=== PATIENT | male | born 1930 | race Caucasian/White ===

== ENCOUNTER 2017-12-03 23:47 | Inpatient (IN) ==
--- NOTE | 2017-12-04 00:08 | ERNOTE ---
Lower Extremity HPI - General Lower Extremities Pain: hip: right - fracture Time Seen by Provider: 12/03/17 23:59 Source: patient Exam Limitations: no limitations - Immun/Allergies/Home Medications Immunizations: IMMUNIZATION HX Immunizations Up to Date Yes History of Influenza Vaccine Yes Hx Pneumococcal Vaccination Yes Allergies/Adverse Reactions: Allergies Allergy/AdvReac Type Severity Reaction Status Date / Time No Known Allergies Allergy Unverified 12/04/17 00:08 Home Medications: HOME MEDICATIONS Cyanocobalamin [Vitamin B-12] 1,000 mcg PO DAILY 12/04/17 [Last Taken Unknown] Lisinopril [Zestril] 10 mg PO DAILY 12/04/17 [Last Taken Unknown] Lovastatin [Altoprev] 20 mg PO DAILY 12/04/17 [Last Taken Unknown] Rivaroxaban [Xarelto] 20 mg PO DAILY 12/04/17 [Last Taken Unknown] Stool Softener 1 tab PO DAILY 12/04/17 [Last Taken Unknown] Tamsulosin HCl [Flomax] 0.4 mg PO DAILY 12/04/17 [Last Taken Unknown] - History of Present Illness Narrative: Pt slipped on gravel and fell this evening and was taken to [facility] where he was diagnosed with a right hip fracture. He was accepted by orthopedics and transferred here for orthopedic consult and repair of his hip fracture. Occurred: this evening Location of Incident: home Method of Injury: Reports: fell Review of Systems - Review of Systems Constitutional: Absent: recent illness, fever EYE: Absent: vision changes ENT: Absent: nose congestion, nasal drainage Respiratory: Absent: shortness of breath, cough Cardiology: Absent: chest pain, palpitations Gastrointestinal/Abdominal: Absent: nausea, vomiting Genitourinary: Present: frequency - at night. Absent: dysuria Musculoskeletal: Present: joint pain - right hip only. Absent: back pain Skin: Absent: rash, lesions Neurological: Absent: headache, dizziness/light-headedness Endocrine: Absent: excessive sweating, flushing Hematologic/Lymphatic: Present: easy bruising, easy bleeding Psych: Absent: anxiety, depressed Medical History (Last Reviewed 12/04/17 @ 00:36 by Jamar Leung DO) DVT (deep venous thrombosis) Prostate hypertrophy High cholesterol Hypertension Surgical History: Surgical History (Last Reviewed 12/04/17 @ 00:36 by Jamar Leung DO) No history of previous surgery Family History: Family History (Last Reviewed 12/04/17 @ 00:36 by Jamar Leung DO) Mother Diabetes Other Parents Social History: Preferred Language Icelandic Do you have any gnosticism or No cultural preference? Smoking Status Never smoker Alcohol Use occasionally Drug Use none No Social History Section defined Physical Exam - Physical Exam General Appearance: Present: wd/wn, alert, no apparent distress Head Exam: Present: normal inspection, no evidence of injury Ears, Nose, Throat: Present: normal ENT inspection Neck: Present: normal inspection, nontender, supple Respiratory: Present: no respiratory distress, normal breath sounds, lungs clear Cardiovascular/Chest: Present: regular rate, rhythm, no murmur, normal peripheral pulses Gastrointestinal/Abdominal: Present: normal bowel sounds, nontender, nondistended, soft Back Exam: Present: no vertebral tenderness Extremity Exam: Present: normal except - - pain in right hip. , decreased range of motion - right hip, pelvis stable, pedal edema Neurological Exam: Present: alert, oriented, normal mood/affect, no motor/sensory deficits Skin Exam: Present: normal color, warm/dry Lymphatic Exam: Present: no adenopathy ED Progress - Results and Orders Patient's Lab Results:: I have reviewed the patient's lab results. Results and Orders: labs from [place] show CBC, CMP, PTT within normal limits. - Vital Signs Patient's Vital Signs:: I have reviewed the patient's vital signs. Vital Signs: Vital Signs 12/03/17 23:51 Temperature 38.0 C Pulse Rate 95 Respiratory Rate 16 Blood Pressure 185/90 H O2 Sat by Pulse Oximetry 95 - X-Ray X-Ray #1 X-Ray: hip - right Interpretation: Reviewed by me X-ray Comments: impacted, angulated, right femoral neck fracture. No visible pelvic fracture X-Ray #2 X-Ray: chest Interpretation: Reviewed by me X-ray Comments: reading of CXR from [place] was normal cardiopulmonary x ray. - Progress/Reassessment Chief Complaint: Hip Pain/Injury Progress:: Improved Progress Note-Subjective: 12/04/17 00:20 spoke with Christiano Abdullahi PA-C he requests that I consult FP/IM for admission and they consult Dr. Cottrell. 00:25 Spoke with she agrees with admission. Departure Clinical Impression: Femoral neck fracture Qualifiers: Encounter type: initial encounter Fracture type: closed Laterality: right Qualified Code(s): S72.001A - Fracture of unspecified part of neck of right femur, initial encounter for closed fracture - Departure Disposition: Still a patient Condition: Good
[2017-12-04] MEDS ORDERED: MORPHINE SULFATE 2 MG/ML DISP.SYRIN IV ONE (00:28)
[2017-12-04] MEDS ORDERED: MORPHINE SULFATE 2 MG/ML DISP.SYRIN ONE (00:30)
[2017-12-04] MEDS ORDERED: LABETALOL HCL 5 MG/ML VIAL IV ONE (01:58)
[2017-12-04] MEDS: NORMAL SALINE 1,000 ML IV PRN ×3 (02:43→18:26)
--- NOTE | 2017-12-04 08:25 | HP ---
Chief Complaint - Chief Complaint Date of Service: 12/04/17 Time of Service: 07:49 Chief Complaint: hip fracture History of Present Illness: Patient with PMHx of HTN, HLD, remote DVT admitted overnight for right hip fracture. No family present during my exam, and he displays some confusion. He is able to say he had an injury, but can not give details. Not oriented to place or time, but is oriented to self. Per ED notes, he tripped and fell in his driveway. He initially went to the [place] ED, and right hip xray shows angulated, impacted right femoral neck fracture. He received 50 mg fentanyl in [place], and 2 mg morphine at 12:30 this morning. Unable to see images from [place], but CXR report shows no acute abnormality on his portable AP chest xray. He takes xarelto for a remote DVT. INR of 1.4 last night. No significant abnormalities on CMP or CBC. Hgb of 13.0. ED notes report normal mentation. Medical History (Last Reviewed 12/04/17 @ 01:16 by Chasity Reyes RN) DVT (deep venous thrombosis) Prostate hypertrophy High cholesterol Hypertension Surgical History: Surgical History (Last Reviewed 12/04/17 @ 01:16 by Chasity Reyes RN) No history of previous surgery Family History: Family History (Last Reviewed 12/04/17 @ 01:16 by Chasity Reyes RN) Mother Diabetes Other Parents Social History: Patient Lives/Resources Home Utilized Occupation Retired Preferred Language Mosotho Do you have any moravian or No cultural preference? Smoking Status Former smoker Have you smoked in the past 12 No months Do you dip or chew tobacco No Alcohol Use occasionally Drug Use none No Social History Section defined Review Of Systems (GEN) - Review of Systems Generalized/Overall Review: Absent: Fever Respiratory: Absent: Shortness of Breath Cardiac: Absent: Chest Pain Abdominal: Absent: Nausea Immunizations: IMMUNIZATION HX Immunizations Up to Date Yes History of Influenza Vaccine Yes Hx Pneumococcal Vaccination Yes Allergies/Adverse Reactions: Allergies Allergy/AdvReac Type Severity Reaction Status Date / Time No Known Allergies Allergy Unverified 12/04/17 00:08 Home Medications: HOME MEDICATIONS Cyanocobalamin [Vitamin B-12] 1,000 mcg PO DAILY 12/04/17 [Last Taken Unknown] Docusate Sodium [Colace] 100 mg PO DAILY 12/04/17 [Last Taken Unknown] Lisinopril [Zestril] 10 mg PO DAILY 12/04/17 [Last Taken Unknown] Lovastatin [Altoprev] 20 mg PO DAILY 12/04/17 [Last Taken Unknown] Rivaroxaban [Xarelto] 20 mg PO DAILY 12/04/17 [Last Taken Unknown] Tamsulosin HCl [Flomax] 0.4 mg PO DAILY 12/04/17 [Last Taken Unknown] Exam - Exam Vital Signs: Vital Signs - Last Taken Temp 37.4 C 12/04/17 00:59 Pulse 74 12/04/17 03:33 Resp 16 12/04/17 03:33 BP 161/79 H 12/04/17 03:33 Pulse Ox 93 12/04/17 00:59 Constitutional: Present: Alert - Oriented to self. States the season is spring, and the upcoming holiday is . Can not state location, Cooperative, No distress, Elderly Respiratory: Present: normal breath sounds, no respiratory distress Cardiovascular/Chest: Present: regular rate, rhythm Abdomen: Present: Normal bowel sounds, soft, nontender Extremity: Present: no pedal edema, other - right leg externally rotated and foreshortened Neurologic: Present: general magistrate II-XII nml as tested. Absent: sensory deficit Eye contact: Present: cooperative Assessment/Plan - Assessment/Plan (1) Femoral neck fracture Assessment: Ortho has been consulted for surgical repair. Patient is confused, and consent will need to be signed by POA. Negative portable CXR in [place]. No history of CHF or prior TIA/CVA. He is at low risk for major cardiac event. Pain control with morphine. Problem: Acute Qualifiers: Encounter type: initial encounter Fracture type: closed Laterality: right Qualified Code(s): S72.001A - Fracture of unspecified part of neck of right femur, initial encounter for closed fracture (2) Confusion Assessment: Family not present to help determine his baseline mentation. Per his nurse, he was alert and oriented appropriately earlier this morning, so his confusion may be intermittent. Could be secondary to pain medications, hospitalization, and his injury. Will continue to assess. Problem: Acute (3) Hypertension Assessment: Continue home lisinopril. He was given an extra dose of labetalol overnight. His BP may be elevated secondary to pain, and will monitor today. Can increase his lisinopril dose to 20 mg if it is consistently high. Problem: Acute (4) History of DVT (deep vein thrombosis) Assessment: Home Xarelto held prior to surgery. Will discuss with family more details regarding his previous DVT, as prolonged anticoagulation may not be needed. Problem: Chronic (5) Prostate enlargement Assessment: Continue home tamsulosin. He was unable to urinate overnight, and martínez was placed. Problem: Acute (6) Hyperlipidemia Assessment: Holding home lovastatin. Problem: Acute
--- NOTE | 2017-12-04 08:58 | CONS ---
HPI - General Date of Service: 12/04/17 Narrative: Consultation note. Mr. Parson was admitted through the emergency department after a ground-level fall at home. Patient was unable to bear weight on his right lower extremity . Initially seen at [facility] and then transferred up to [facility] and is admitted under Dr. Liu's service. Patient reports no complaints of any other areas of pain. Source: patient - History of Present Illness Allergies/Adverse Reactions: Allergies No Known Allergies Allergy (Unverified 12/04/17 00:08) Home Medications: Home Medications Medication Instructions Recorded Last Taken Cyanocobalamin [Vitamin B-12] 1,000 mcg PO DAILY 12/04/17 Unknown Docusate Sodium [Colace] 100 mg PO DAILY 12/04/17 Unknown Lisinopril [Zestril] 10 mg PO DAILY 12/04/17 Unknown Lovastatin [Altoprev] 20 mg PO DAILY 12/04/17 Unknown Rivaroxaban [Xarelto] 20 mg PO DAILY 12/04/17 Unknown Tamsulosin HCl [Flomax] 0.4 mg PO DAILY 12/04/17 Unknown Medications - Medications Current Medications: Current Medications Sodium Chloride (Sodium Chloride 0.9%) 1,000 mls @ 125 mls/hr IV .Q8H PRN PRN Reason: HYDRATION Stop: 01/03/18 02:00 Last Admin: 12/04/17 02:43 Dose: 125 mls/hr Physical Examination - Exam Narrative: Patient laying in bed alert. He is not in any distress at this point time. Right lower extremity only shortened and externally rotated. Reports local inguinal pain with palpation. Reports inguinal pain with logroll test. Reports sensation intact in the right lower extremity to touch. Patient is able to plantarflex and dorsiflex right ankle. 1+ posterior tibial pulse. No knee or ankle pain in the right lower extremity with palpation. X-rays reviewed show a displaced subcapital hip fracture in varus. Vital Signs: Vital Signs - Last Taken Temp 37.4 C 12/04/17 00:59 Pulse 74 12/04/17 03:33 Resp 16 12/04/17 03:33 BP 161/79 H 12/04/17 03:33 Pulse Ox 93 12/04/17 00:59 O2 Oxygen Delivery Method Room Air - Assessments/Findings (1) Fracture of right hip Diagnosis(s): Discussed with patient his condition. Surgery discussed for hemiarthroplasty. Risks of infection, neurovascular injury, leg length discrepancy, risk of dislocation of implant and hardware complications, DVT and pulmonary embolism discussed. He will be n.p.o. at midnight tonight with plan pending medical evaluation to proceed with surgery December 05. Consents will be obtained from POA. Patient will have Ancef IV preop. Problem: Acute
[2017-12-04] MEDS ORDERED: TAMSULOSIN HCL 0.4 MG CAP.SR.24H PO SCH (09:00)
[2017-12-04] MEDS: DOCUSATE SODIUM 100 MG CAPSULE PO SCH (09:03)
[2017-12-04] MEDS: LISINOPRIL 10 MG TABLET PO SCH (09:03)
[2017-12-04] MEDS: MORPHINE SULFATE 2 MG/ML DISP.SYRIN IV PRN ×3 (09:14→22:53)
[2017-12-04] MEDS: TAMSULOSIN HCL 0.4 MG CAP.SR.24H PO SCH (18:25)
[2017-12-05] MEDS ORDERED: ACETAMINOPHEN 325 MG TABLET PO PRN (01:29)
[2017-12-05] MEDS ORDERED: ACETAMINOPHEN 325 MG TABLET ONE (01:35)
[2017-12-05 01:52] LABS: Hematocrit 33.9 % (42.0-52.0); Hemoglobin 11.3 gm/dL (13.5-18.0); Mean Cell Volume 96.6 fl (78-100); Mean Corpuscular Hemoglobin 32.2 pg (27-31); Mean Corpuscular Hgb Conc 33.3 g/dl (32-36); Neutrophil # 6.7 K/mm3 (1.3-6.0); Neutrophil % 76.1 % (42-75.0); Platelet Count 157 K/mm3 (150-450); Red Blood Count 3.51 M/mm3 (4.7-6.0); Red Cell Distribution Width 12.2 % (11.5-14.0); White Blood Count 8.9 K/mm3 (4.0-10.5)
[2017-12-05 02:29] LABS: Urine Bilirubin Negative (NEGATIVE); Urine Blood 250 /ul (NEGATIVE); Urine Ketone Negative (NEGATIVE); Urine Nitrite Negative (NEGATIVE); Urine Protein Negative (NEGATIVE); Urine Specific Gravity 1.015 SP.GR. (1.005-1.030); Urine Urobilinogen Normal (NORMAL)
[2017-12-05 02:36] LABS: Urine Appearance Slightly Cloudy (CLEAR); Urine Bacteria TRACE; Urine Color Yellow; Urine RBC 25-50 /hpf (0-5); Urine WBC 0-5 /hpf (0-5)
[2017-12-05] MEDS: NORMAL SALINE 1,000 ML IV PRN (02:40)
[2017-12-05] MEDS: RINGER'S SOLUTION,LACTATED 1,000 ML IV PRN ×3 (05:57→14:14)
[2017-12-05] MEDS ORDERED: ceFAZolin SODIUM 1 GM VIAL IV PRN (06:00)
[2017-12-05] MEDS ORDERED: ROPIVACAINE HCL/PF 100 MG, EPINEPHrine 0.2 MG, KETOROLAC TROMETHAMINE 30 MG in NORMAL S... IJ PRN (06:00)
[2017-12-05] MEDS ORDERED: TRANEXAMIC ACID 1,000 MG in NORMAL SALINE 100 ML IV PRN (06:00)
[2017-12-05] MEDS: LISINOPRIL 10 MG TABLET PO SCH (08:28)
[2017-12-05] MEDS: DOCUSATE SODIUM 100 MG CAPSULE PO SCH (08:28)
--- NOTE | 2017-12-05 08:40 | PN ---
Subjective - Date and Time Seen Date: 12/05/17 Time: 08:40 Subjective Narrative: Nursing called overnight for temperature of 38.3. Tylenol was given, and fever resolved. CBC and UA ordered. WBC not elevated, and UA was positive for blood and leuk esterase. He reports having problems with urinating at baseline. He has left knee pain at baseline. Right hip pain when he tries to move. Surgery scheduled for this afternoon. Objective - Review of Systems Generalized/Overall Review: Reports: Fever Respiratory: Denies: Shortness of Breath Cardiac: Denies: Chest Pain Abdominal: Reports: Vomiting. Denies: Nausea Genitourinary Symptoms: Reports: Other - martínez in place Neurological: Reports: Other - Vitals Vitals: Last Vital Signs Temp 36.9 C 12/05/17 06:55 Pulse 71 12/05/17 08:28 Resp 12 12/05/17 06:55 BP 160/73 H 12/05/17 08:28 Pulse Ox 94 12/05/17 06:55 - Abnormal Lab Findings Abnormal Lab Findings: Abnormal Lab Results 12/05/17 12/05/17 Range/Units 01:45 02:15 RBC 3.51 L (4.7-6.0) M/mm3 Hgb 11.3 L (13.5-18.0) gm/dL Hct 33.9 L (42.0-52.0) % MCH 32.2 H (27-31) pg Neutrophils % 76.1 H (42-75.0) % Lymphocytes % 10.3 L (20-51) % Monocytes % 11.5 H (0.0-9) % Neutrophils # 6.7 H (1.3-6.0) K/mm3 Lymphocytes # 0.91 L (1.5-3.5) k/mm3 Urine Blood 250 H (NEGATIVE) /ul Ur Leukocyte Esterase 75 H (NEGATIVE) /ul Urine RBC 25-50 H (0-5) /hpf - Exam Constitutional: Present: Alert - Oriented to self, knows president, Cooperative, No distress ENT Exam: Present: other - hard of hearing Respiratory: Present: lungs clear, normal breath sounds Cardiovascular/Chest: Present: regular rate, rhythm Abdomen: Present: Normal bowel sounds, soft, nontender Extremity: Present: leg pain - right hip, left knee, other - right leg laterally rotated, shortened. SCDs in place Eye contact: Present: cooperative, good eye contact Cauti Physician Documentation - Urinary Catheter Management Urethral (Martínez) Date of Insertion: 12/04/17 Time of Insertion: 02:15 Assessment/Plan - Problems/Diagnosis (1) Femoral neck fracture Problem: Acute Qualifiers: Encounter type: initial encounter Fracture type: closed Laterality: right Qualified Code(s): S72.001A - Fracture of unspecified part of neck of right femur, initial encounter for closed fracture Narrative: Plan for surgical fixation this afternoon. Pain control with morphine. He also has a problematic left knee, and his does not think she will be able to care for him postop. Placement pending. (2) Fever Problem: Acute Narrative: Temp of 38.3 overnight, improved with tylenol. No signs of infection on exam. Martínez catheter had been placed around 0230 on 12/04/17, and fever was documented at 0100 on 11/25/17. Unlikely to have catheter associated UTI in that short time. UA was positive for blood and leuk esterase, and urine culture pending. He was given a dose of Rocephin this morning, since he is having surgery this afternoon. (3) Confusion Problem: Acute Narrative: Likely secondary to morphine, injury, and hospitalization. His reports he has been having difficulty with word finding. (4) Hypertension Problem: Acute Narrative: Continue home 10 mg lisinopril. Add 20 mg labetalol if needed for persistent BP greater than 160/90. (5) History of DVT (deep vein thrombosis) Problem: Chronic Narrative: Was prescribed xarelto prior to his injury. SCDs in place. His reports the DVT was 18 months ago. (6) Prostate enlargement Problem: Acute Narrative: continue tamsulosin (7) Hyperlipidemia Problem: Acute Narrative: holding home lovastatin.
[2017-12-05] MEDS: MORPHINE SULFATE 2 MG/ML DISP.SYRIN IV PRN (09:50)
--- NOTE | 2017-12-05 09:54 | PREOP NOTE ---
Preoperative Progress Note - Preoperative Changes Changes to Preop Condition?: No Changes
--- NOTE | 2017-12-05 12:25 | ANES ---
Anesthesia Pre Procedure Eval Vitals/Labs: Last Vital Signs Temp 36.9 C 12/05/17 06:55 Pulse 71 12/05/17 08:28 Resp 12 12/05/17 06:55 BP 160/73 H 12/05/17 08:28 Pulse Ox 94 12/05/17 06:55 HOME MEDICATIONS Cyanocobalamin [Vitamin B-12] 1,000 mcg PO DAILY 12/04/17 [Last Taken Unknown] Docusate Sodium [Colace] 100 mg PO DAILY 12/04/17 [Last Taken Unknown] Lisinopril [Zestril] 10 mg PO DAILY 12/04/17 [Last Taken Unknown] Lovastatin [Altoprev] 20 mg PO DAILY 12/04/17 [Last Taken Unknown] Rivaroxaban [Xarelto] 20 mg PO DAILY 12/04/17 [Last Taken Unknown] Tamsulosin HCl [Flomax] 0.4 mg PO DAILY 12/04/17 [Last Taken Unknown] Allergies/Adverse Reactions: Allergies Allergy/AdvReac Type Severity Reaction Status Date / Time No Known Allergies Allergy Unverified 12/04/17 00:08 - Planned Procedure Planned Procedure: Right Hip Fx Medication List Reviewed:: Yes Allergies Verified: Yes Medical History (Last Reviewed 12/05/17 @ 12:16 by Ruben Jordan CRNA) DVT (deep venous thrombosis) Prostate hypertrophy High cholesterol Hypertension Surgical History (Last Reviewed 12/05/17 @ 12:19 by Ruben Jordan CRNA) No history of previous surgery Family History (Last Reviewed 12/05/17 @ 12:19 by Ruben Jordan CRNA) Mother Diabetes Other Parents - Family Anesthesia History Family History:: no untoward family reactions to anesthesia, no familial bleeding tendencies, no family history of clotting disorders, no family history of premature - Airway/Neck/Teeth Teeth Condition: Stained, Missing Teeth, Broken, Incisor Notching Neck Exam: limited range of motion Mallampatti Score: 2 Thyromental (T-M) distance: > 6 cm Mandibulo Hyoid distance: > 3 cm - Respiratory Respiratory: chest non-tender, lungs clear - coarse but not ronchi Smoking Status: Former smoker Sleep Apnea currently treated: No Sleep Apnea by current assessment: No - Cardiovascular Patient History - Cardiac/Respiratory: Hypertension, Hyperlipidemia Tolerates Activity: Poor Heart Sounds: S1 & S2, Regular - Anesthesia Assessment and Plan ASA Class: PS, III Anesthesia Type Plan: Spinal - on Xarelto but last dose either Sunday or Sunday morning. Await EKG Planned difficult intubation/equipment available: Yes - if intubation needed
[2017-12-05] MEDS ORDERED: ACETAMINOPHEN 500 MG TABLET PO PRN (15:18)
[2017-12-05] MEDS ORDERED: ONDANSETRON HCL/PF 2 MG/ML VIAL IV PRN (15:18)
[2017-12-05] MEDS ORDERED: MORPHINE SULFATE 2 MG/ML DISP.SYRIN IV PRN (15:18)
[2017-12-05] MEDS ORDERED: MAG HYDROX/ALUMINUM HYD/SIMETH 30 ML UDC PO PRN (15:18)
--- NOTE | 2017-12-05 15:18 | OR ---
Operative Report - Dictated Report Narrative: Date: 12/05/2017 Preoperative diagnosis: Closed right hip displaced femoral neck fracture. Postoperative diagnosis: Closed right hip displaced femoral neck fracture Procedure: Right hip cemented marty-arthroplasty. Surgeon: Abdiel Cottrell M.D. Wage Hand: Christiano Abdullahi PA-C Anesthesia: Spinal. Complications: None Specimens: Bone for disposal. Estimated blood loss: 150 milliliters. Retained implants: Depuy [place] size 7 basic cemented femoral stem. Size 56 millimeter outside diameter self-centering bipolar head with +5 millimeter cobalt chromium 28 mm femoral head. Indications: Mr. Parson is a 87-year-old gentleman who fell at home. This patient was evaluated on the floor and found to have sustained a displaced femoral neck fracture. The risks and benefits were discussed with the patient as well as any power of finance attorney or family . The patient wished to proceed with surgical treatment. The risks, benefits, and alternatives discussed were , blood clots, bleeding, infection, nerve/tendon blood vessel/ injury, malposition of components, dislocation and/or instability of joint, intraoperative fracture, postoperative limited range of motion, persistent pain, failure of components, and need for additional procedures. Patient wished to proceed. Consent was obtained after answering all questions. Procedure: After marking the correct extremity on the floor, the patient was taken to the operating room. A timeout was performed. IV antibiotics consisting of Ancef were administered prior to the procedure. A spinal anesthetic was induced by anesthesia. A Roper catheter was inserted if not are in place. The patient was then transitioned to a lateral position on a well- padded pegboard. An axillary roll was placed. The head was in neutral position. The non-operative down leg was well-padded with SCD and KOBY hose in place. The arms were supported and padded to protect from any undue pressure on the bony prominences and nerves. Well-padded anterior and posterior pelvic and chest posts were secured in order to maintain a stable position of the pelvis. This was placed so that the pelvis was perpendicular to the floor. The body was in line with the pelvis. Once it was felt that we had protected all the bony prominences and the patient was well secured with a safety belt as well, the leg was pre-scrubbed with alcohol, prepped and draped in a standard sterile fashion. A standard anterior lateral hip incision was marked out over the greater trochanter. Ioban drapes were then placed. The skin incision was then made. Sharp dissection with a scalpel utilizing cautery for hemostasis was carried out down to the gluteus and iliotibial band fascia. This was split in line with the skin incision. The greater trochanter bursa was excised. The anterior and posterior margins of the abductor tendon were identified. The anterior 1/2-1/3 of the tendon was tagged and reflected off the greater trochanter leaving a sleeve of tendon for repair at the completion of the case. This exposed the underlying hip joint capsule. An inverted T-type capsulotomy was made extending this up to the brim of the acetabulum. We encountered a hematoma at this point confirming an acute fracture as well as noted displacement of the femoral neck fracture. Using Homans to assist with elevation of the soft tissues off the anterior, superior, and inferior aspects of the femoral neck, the hip was then placed in a figure 4 position for a femoral neck cleanup cut to be made. With the leg in an externally rotated and adducted position, the cutting flag was utilized in order to audra for a standard femoral neck cut approximately a fi ngerbreadth above the level of the lesser trochanter. This was done while protecting the surrounding soft tissues with Homans. The femoral head was then removed and sized for guidance on the size of the bipolar head. It was noted that there was no significant loss of articular cartilage on both the femoral head and weightbearing portions of the acetabulum. We then returned the leg to the table and turned our attention to the acetabulum. While protecting the surrounding soft tissues, the labrum and remaining tissue in the fovea were excised using a scalpel and cautery. The acetabulum was then protected with a sponge while we returned our attention to the femur. With the leg in a figure 4 position utilizing Homans for soft tissue protection, a box cutting osteotome, followed by Hiwotey awl, followed by serial broaches were utilized in order to prepare the femur. It was found that a size 7 broach gave good axial and rotational stability. The proximal femur was visualized to ensure that there were no signs of fracture. A series of heads were trialed. It was found that a + 5 femoral head gave good overall stability. There is minimal longitudinal instability. Hip range of motion was able to reach full extension and external rotation to greater than 75 degrees prior to impingement along the posterior acetabulum. The hip was able to be flexed to greater than 90 degrees with internal rotation greater than 60 degrees prior to anterior impingement. The limb lengths were near equal based on comparison to the contralateral side . At this point was felt this was the appropriately sized femoral components as well as neck and femoral head. The trial implants were removed. A canal cement plug was placed distally and the canal was thoroughly irrigated using pulsatile vacuum brush device. The canal was then thoroughly dried with a suction device. The cement was vacuum mixed per the med surg nurse's instructions and placed into a cement gun. Cement was then placed in the dry irrigated femur using modern cementing technique using a pressurizing device. The stem was then placed in the appropriate version compared to her sycuan anatomy and held in place while the cement cured and the extruded cement was removed. Once the cement was fully cured, we ensured that the stem was stable and that there were no signs of fracture. The remaining extruded cement was removed, and the joint and the capsule were thoroughly evaluated to ensure there are no cement fragments. The final femoral bipolar head was then impacted in the place. The hip was then reduced and seated completely. A periarticular joint injection of ropivacaine, Toradol, and epinephrine was infused around the joint and surrounding tissues. The capsule was repaired with a single interrupted #1 Vicryl. The abductor tendon was repaired to the greater trochanter utilizing #5 Ethibond through drill holes. This was oversewn with #1 Vicryl. The fascia was closed with interrupted #1 Vicryl. The wounds were thoroughly irrigated as we closed in layers. The deep and subcutaneous fat layers were closed with 0 Vicryl. The subcutaneous tissue was closed with a running 3-0 Vicryl and the skin with anup. All sponge, needle, blade, and instrument counts were correct prior to closing the wounds. Sterile dressings consisting of Xeroform, 4 x 4's, ABD, and tape were applied. The patient was awoken and transferred to her hospital bed and then to the postanesthesia care unit in stable condition. Postoperative condition: The plan is to return to the medical/surgical inpatient floor postoperatively. Postoperatively 24 hours of IV antibiotics, pain control, physical therapy, occupational therapy, and medical comanagement will be utilized. Patient will be weightbearing as tolerated with anterior hip precautions. Postoperative films will be obtained in the recovery room.
[2017-12-05] MEDS: ceFAZolin SODIUM 1 GM in DEXTROSE 5 % IN WATER 100 ML IV SCH ×2 (17:33)
[2017-12-05] MEDS: TAMSULOSIN HCL 0.4 MG CAP.SR.24H PO SCH (18:35)
[2017-12-05] MEDS: SENNOSIDES/DOCUSATE SODIUM 1 TAB TABLET PO SCH (21:16)
[2017-12-05] MEDS: HYDROcodone/ACETAMINOPHEN 1 EACH TABLET PO PRN (23:24)
[2017-12-06] MEDS: ceFAZolin SODIUM 1 GM in DEXTROSE 5 % IN WATER 100 ML IV SCH ×4 (00:07→06:48)
[2017-12-06 05:33] LABS: Hematocrit 32.5 % (42.0-52.0); Hemoglobin 10.7 gm/dL (13.5-18.0); Mean Cell Volume 98.8 fl (78-100); Mean Corpuscular Hemoglobin 32.5 pg (27-31); Mean Corpuscular Hgb Conc 32.9 g/dl (32-36); Mean Platelet Volume 9.4 fl (8-11.3); Platelet Count 161 K/mm3 (150-450); Red Blood Count 3.29 M/mm3 (4.7-6.0); Red Cell Distribution Width 12.2 % (11.5-14.0)
[2017-12-06 05:41] LABS: Anion Gap 9.2 mmol/L (6.8-13.8); BUN/Creatinine Ratio 10.1 (9.0-21.6); Calcium * 8.1 mg/dL (7.9-10.9); Carbon Dioxide 29.9 mmol/L (24-32.6); Estimated Creat Clear 66.7; Potassium 4.1 mmol/L (3.4-4.6)
--- NOTE | 2017-12-06 08:27 | PN ---
Subjective - Date and Time Seen Date: 12/06/17 Time: 08:25 Subjective Narrative: Doing well. Sitting in chair. Denies excess pain. Eating well. Objective Objective Narrative: RLE : thigh soft, dressings dry, palp DP, moving toes, mild pain with hip ROM, sensation intact - Vitals Vitals: Last Vital Signs Temp 37.1 C 12/06/17 07:53 Pulse 78 12/06/17 07:53 Resp 14 12/06/17 07:53 BP 144/64 12/06/17 07:53 Pulse Ox 94 12/06/17 07:53 - Abnormal Lab Findings Abnormal Lab Findings: Abnormal Lab Results 12/06/17 12/06/17 Range/Units 05:16 05:16 RBC 3.29 L (4.7-6.0) M/mm3 Hgb 10.7 L (13.5-18.0) gm/dL Hct 32.5 L (42.0-52.0) % MCH 32.5 H (27-31) pg Random Glucose 117 H (70-110) mg/dL - Exam Constitutional: Present: Alert Cauti Physician Documentation - Urinary Catheter Management Urethral (Roper) Date of Insertion: 12/04/17 Time of Insertion: 02:15 Date of Removal: 12/06/17 Time of Removal: 07:10 Assessment/Plan Plan Narrative: POD 1 s/p right hip hemiarthroplasty - WBAT, Anterior hip precautions, resumed on xarelto, ice to hip, keep wound dry, cover with dry gauze, will follow-up with ortho 2 weeks post-discharge, continue PT, pain control.
--- NOTE | 2017-12-06 08:30 | PN ---
Subjective - Date and Time Seen Date: 12/06/17 Time: 08:14 Subjective Narrative: Patient seems to be doing well after his surgery yesterday afternoon. He did have a couple episodes overnight where he was sitting on the edge of his bed. He had one dose of norco overnight. His martínez was removed this morning. Has been afebrile. His appetite seems to have improved after surgery. Objective - Review of Systems Generalized/Overall Review: Denies: Fever Respiratory: Denies: Shortness of Breath Cardiac: Denies: Chest Pain, Edema Abdominal: Denies: Vomiting Genitourinary Symptoms: Reports: Other - martínez removed this morning - Vitals Vitals: Last Vital Signs Temp 37.1 C 12/06/17 07:53 Pulse 78 12/06/17 07:53 Resp 14 12/06/17 07:53 BP 144/64 12/06/17 07:53 Pulse Ox 94 12/06/17 07:53 - Abnormal Lab Findings Abnormal Lab Findings: Abnormal Lab Results 12/06/17 12/06/17 Range/Units 05:16 05:16 RBC 3.29 L (4.7-6.0) M/mm3 Hgb 10.7 L (13.5-18.0) gm/dL Hct 32.5 L (42.0-52.0) % MCH 32.5 H (27-31) pg Random Glucose 117 H (70-110) mg/dL - Exam Constitutional: Present: No distress Respiratory: Present: lungs clear, normal breath sounds Cardiovascular/Chest: Present: regular rate, rhythm Abdomen: Present: Normal bowel sounds, soft, nontender Extremity: Present: other - SCDs in place. Absent: lower extremity edema Cauti Physician Documentation - Urinary Catheter Management Urethral (Martínez) Urethral Indwelling: No Date of Insertion: 12/04/17 Time of Insertion: 02:15 Date of Removal: 12/06/17 Time of Removal: 07:10 Assessment/Plan - Problems/Diagnosis (1) Femoral neck fracture Problem: Acute Qualifiers: Encounter type: initial encounter Fracture type: closed Laterality: right Qualified Code(s): S72.001A - Fracture of unspecified part of neck of right femur, initial encounter for closed fracture Narrative: Patient underwent surgical repair yesterday, and seems to be doing well. Used one dose of norco overnight. If he does not use morphine today, can discontinue. PT has been consulted. He also has an arthritic left knee, and his does not think she will be able to care for him at home. Placement pending. (2) Confusion Problem: Acute (3) Hypertension Problem: Acute Narrative: Currently well controlled. Continue home lisinopril. (4) History of DVT (deep vein thrombosis) Problem: Chronic Narrative: Restarting home xarelto this morning, and can discontinue SCDs. (5) Prostate enlargement Problem: Acute Narrative: Continue home tamsulosin. He was unable to urinate the night of admission, and martínez was placed. This was removed this morning, and will need to monitor for his ability to urinate on his own. (6) Hyperlipidemia Problem: Acute (7) Fever Problem: Resolved Narrative: Had an elevated temp the night before last, and urine culture pending. WBC not elevated. He was given a dose of Rocephin yesterday, and will repeat if urine culture is positive.
[2017-12-06] MEDS: RIVAROXABAN 20 MG TABLET PO SCH (08:33)
[2017-12-06] MEDS: LISINOPRIL 10 MG TABLET PO SCH (08:33)
[2017-12-06] MEDS: DOCUSATE SODIUM 100 MG CAPSULE PO SCH (08:33)
[2017-12-06] MEDS: HYDROcodone/ACETAMINOPHEN 1 EACH TABLET PO PRN ×4 (09:39→22:38)
[2017-12-06] MEDS: MAGNESIUM HYDROXIDE 30 ML UDC PO PRN (10:42)
[2017-12-06] MEDS: hydrOXYzine HCL 25 MG TABLET PO PRN ×2 (13:40→17:56)
[2017-12-06] MEDS: TAMSULOSIN HCL 0.4 MG CAP.SR.24H PO SCH (18:11)
[2017-12-06] MEDS: SENNOSIDES/DOCUSATE SODIUM 1 TAB TABLET PO SCH (20:50)
[2017-12-07] MEDS: HYDROcodone/ACETAMINOPHEN 1 EACH TABLET PO PRN ×3 (02:20→13:26)
[2017-12-07 05:15] LABS: Hemoglobin 9.8 gm/dL (13.5-18.0); Mean Corpuscular Hemoglobin 32.3 pg (27-31); Mean Corpuscular Hgb Conc 32.7 g/dl (32-36); Mean Platelet Volume 9.2 fl (8-11.3); Neutrophil # 6.2 K/mm3 (1.3-6.0); Neutrophil % 67.9 % (42-75.0); Platelet Count 157 K/mm3 (150-450); Red Blood Count 3.03 M/mm3 (4.7-6.0); Red Cell Distribution Width 12.4 % (11.5-14.0); White Blood Count 9.1 K/mm3 (4.0-10.5)
[2017-12-07] MEDS: MAGNESIUM HYDROXIDE 30 ML UDC PO PRN (07:31)
[2017-12-07] MEDS: LISINOPRIL 10 MG TABLET PO SCH (08:21)
[2017-12-07] MEDS: DOCUSATE SODIUM 100 MG CAPSULE PO SCH (08:21)
[2017-12-07] MEDS: RIVAROXABAN 20 MG TABLET PO SCH (08:21)
[2017-12-07] MEDS ORDERED: POLYETHYLENE GLYCOL 3350 119 GM BTL PO PRN (08:41)
[2017-12-07] MEDS ORDERED: DOCUSATE SODIUM 100 MG CAPSULE PO SCH (09:00)
--- NOTE | 2017-12-07 09:34 | DS ---
(1) Femoral neck fracture Problem: Acute Qualifiers: Encounter type: initial encounter Fracture type: closed Laterality: right Qualified Code(s): S72.001A - Fracture of unspecified part of neck of right femur, initial encounter for closed fracture (2) Confusion Problem: Acute (3) Hypertension Problem: Acute (4) History of DVT (deep vein thrombosis) Problem: Chronic (5) Prostate enlargement Problem: Acute (6) Hyperlipidemia Problem: Acute (7) Fever Problem: Resolved Description of Stay: Patient admitted after slipping on gravel and sustaining a right hip fracture. Was initially brought to [facility], and transferred here. He underwent right hip cement hemiarthroplasty, and was able to participate in PT. Pain was controlled with 5-325 norco approximately every 5 hours. After surgery, he was given two doses of hydroxyzine for itching. He did have some problems with constipation. Senna, miralax, magnesium hydroxide/aluminum hydroxide/simethicone were added to his regimen. Overnight on the night of admission, he had an elevated temp. No URI symptoms. He has difficulty with urination at baseline. He was unable to urinate the ni ght of admission, and catheter was placed for surgery. He was given two doses of Rocephin, and his urine culture was negative. Will not need antibiotics after discharge. He was able to urinate after the martínez was removed. Procedures Performed: see notes below - Right hip cemented marty-arthroplasty Results and Findings: Lab Pending Results 12/05/17 01:45: WBC 8.9, RBC 3.51 L, Hgb 11.3 L, Hct 33.9 L, MCV 96.6, MCH 32.2 H, MCHC 33.3, RDW 12.2, Plt Count 157, MPV 9.0, Immature Gran % (Auto) 0.30, Immature Gran # (Auto) 0.03, Neutrophils % 76.1 H, Lymphocytes % 10.3 L, Monocytes % 11.5 H, Eosinophils % 1.6, Basophils % 0.2, Nucleated RBC % 0.0, Neutrophils # 6.7 H, Lymphocytes # 0.91 L, Monocytes # 1.0, Eosinophils # 0.1, Absolute Basophils 0.0 12/05/17 02:15: Urine Color Yellow, Urine Appearance Slightly cloudy, Urine pH 6.0, Ur Specific Heber 1.015, Urine Protein Negative, Urine Glucose (UA) Negative, Urine Ketones Negative, Urine Blood 250 H, Urine Nitrate Negative, Urine Bilirubin Negative, Urine Urobilinogen Normal, Ur Leukocyte Esterase 75 H, Urine RBC 25-50 H, Urine WBC 0-5, Ur Epithelial Cells 0-5, Urine Bacteria Trace, Urine Culture Comments Culture to follow 12/06/17 05:16: WBC 9.0, RBC 3.29 L, Hgb 10.7 L, Hct 32.5 L, MCV 98.8, MCH 32.5 H, MCHC 32.9, RDW 12.2, Plt Count 161, MPV 9.4 12/06/17 05:16: Sodium 138, Plasma Sodium 138, Potassium 4.1, Chloride 103, Carbon Dioxide 29.9, Anion Gap 9.2, BUN 10, Creatinine 0.99, Est GFR (Non-Af Amer) 76, BUN/Creatinine Ratio 10.1, Random Glucose 117 H, Calcium 8.1 12/07/17 05:11: WBC 9.1, RBC 3.03 L, Hgb 9.8 L, Hct 30.0 L, MCV 99.0, MCH 32.3 H, MCHC 32.7, RDW 12.4, Plt Count 157, MPV 9.2, Immature Gran % (Auto) 0.30, Immature Gran # (Auto) 0.03, Neutrophils % 67.9, Lymphocytes % 13.8 L, Monocytes % 13.8 H, Eosinophils % 3.9 H, Basophils % 0.3, Nucleated RBC % 0.0, Neutrophils # 6.2 H, Lymphocytes # 1.26 L, Monocytes # 1.3 H, Eosinophils # 0.4, Absolute Basophils 0.0 Discharge Location: [facility] Disposition: [facility] Condition: Good Level of Care: SNF Discharge Activity: Weight bearing - as tolerated Discharge Diet: General/regular food Intermediate Therapy: Physicial Therapy, Occupation Therapy Additional Patient Instructions (free text): WBAT Anterior hip precautions ice to hip PRN keep wound dry, cover with dry gauze and tape. Change PRN F/U with ortho in [address] Powell or Dr Hidalgo will follow patient at long-term. Prescriptions (Any new or edited meds): HYDROcodone/ACETAMINOPHEN [[place] 5-325] 1 tab PO Q4H PRN #84 tab PRN Reason: Pain Complete Home Medications List: Complete Home Medication List: Cyanocobalamin [Vitamin B-12] 1,000 mcg PO DAILY 12/04/17 Docusate Sodium [Colace] 100 mg PO DAILY 12/04/17 Lisinopril [Zestril] 10 mg PO DAILY 12/04/17 Lovastatin [Altoprev] 20 mg PO DAILY 12/04/17 Rivaroxaban [Xarelto] 20 mg PO DAILY 12/04/17 Tamsulosin HCl [Flomax] 0.4 mg PO DAILY 12/04/17 Acetaminophen [Tylenol] 325 mg PO Q4H PRN #0 tablet 12/07/17 HYDROcodone/ACETAMINOPHEN [[place] 5-325] 1 tab PO Q4H PRN #84 tab 12/07/17 Mag Hydrox/Aluminum Hyd/Simeth [Maalox Plus Suspension] 30 ml PO Q6H PRN udc 12/07/17 Magnesium Hydroxide [Milk Of Magnesia] 30 ml PO DAILY PRN udc 12/07/17 Polyethylene Glycol 3350 [Miralax] 17 gm PO DAILY PRN btl 12/07/17 Sennosides/Docusate Sodium [Senokot-S] 2 tab PO HS tablet 12/07/17
[2017-12-07 14:48] VITALS: BP 110/68
== END 2017-12-07 14:18 | DRG 470 ==
LOC: ER 23:47 → MS 12-04 00:28
PROVIDERS: ADMIT Family Medicine; ATTEND Family Medicine
CPT/HCPCS: 36415; 72170; 73502; 80048; 81001; 85025; 85027; 87086; 93005; 96374; 97110; 97116; 97161; 97165; 97535; 99285